=== PATIENT | male | born 1970 | race Caucasian/White ===

== ENCOUNTER 2017-04-22 20:36 | Inpatient (IN) | payer OTHER ==
[~2017-04-22] VITALS: Ht 177.8 cm; Wt 101.4 kg
[2017-04-22 22:04] LABS: BASOPHILS 0.2 % (0-2); EOSINOPHILS 0.2 % (0-7); HEMATOCRIT 47.8 % (42.0-54.0); HEMOGLOBIN 16.8 g/dL (13.5-17.5); IMMATURE GRANULOCYTES 0.3 % (0-5); LYMPHOCYTES 10.9 % (15-50); MCH 31.6 pg (26.0-34.0); MCHC 35.1 g/dL (31.0-37.0); MCV 89.8 fL (80.0-100.0); MEAN PLATELET VOLUME 10.5 fL (7.4-10.4); MONOCYTES 10.9 % (2-11); NEUTROPHILS 77.5 % (40-80); PLATELET COUNT 205 10x3/uL (130-400); RBC 5.32 10x6/uL (4.20-6.10); RDW 11.6 % (11.5-14.5); WBC 6.4 10x3/uL (4.8-10.8)
[2017-04-22 22:27] LABS: CKMB 0.1 U/L (0.0-3.6); CREATINE KINASE 84 UL (21-232); TROPONIN-I < 0.017 ng/mL (0.000-0.060)
[2017-04-22 22:30] VITALS: BP 141/81; Ht 177.8 cm; Wt 101.4 kg
[2017-04-22] MEDS ORDERED: LIPITOR10 MG PO (22:39)
[2017-04-22] MEDS ORDERED: PROAIR HFA8.5 GM INH (22:40)
[2017-04-22] MEDS ORDERED: PHENERGAN25 M1 PO (22:41)
[2017-04-22] MEDS ORDERED: AUGMENTIN 875-11 TAB PO (22:41)
[2017-04-22] MEDS ORDERED: IOPHEN-C NR LI473 ML PO (22:42)
[2017-04-23] VITALS: BP 127/73
[2017-04-23 04:00] VITALS: BP 133/81
[2017-04-23 07:54] VITALS: BP 116/72
[2017-04-23 09:50] LABS: BASOPHILS 0.4 % (0-2); EOSINOPHILS 0.6 % (0-7); HEMATOCRIT 44.6 % (42.0-54.0); HEMOGLOBIN 15.6 g/dL (13.5-17.5); IMMATURE GRANULOCYTES 0.2 % (0-5); LYMPHOCYTES 24.4 % (15-50); MCH 31.5 pg (26.0-34.0); MCV 90.1 fL (80.0-100.0); MEAN PLATELET VOLUME 10.1 fL (7.4-10.4); MONOCYTES 10.7 % (2-11); NEUTROPHILS 63.7 % (40-80); PLATELET COUNT 189 10x3/uL (130-400); RBC 4.95 10x6/uL (4.20-6.10); RDW 11.6 % (11.5-14.5)
[2017-04-23 10:08] LABS: ALBUMIN 2.9 g/dL (3.4-5.0); ANION GAP 10.7 mmol/L (8-16); BILIRUBIN - TOTAL 0.85 mg/dL (0.2-1.3); CALCIUM 8.4 mg/dL (8.5-10.1); CARBON DIOXIDE 29.2 mmol/L (21.0-32.0); CREATININE - SERUM 1.2 mg/dL (0.6-1.3); POTASSIUM - SERUM 3.9 mmol/L (3.5-5.1); PROTEIN - SERUM 6.7 g/dL (6.4-8.2)
[2017-04-23 10:09] LABS: WBC 4.7 10x3/uL (4.8-10.8)
[2017-04-23 11:22] LABS: AMYLASE - SERUM 75 U/L (25-115); LIPASE 366 U/L (73-393)
[2017-04-23 12:19] VITALS: BP 124/71
[2017-04-23 14:56] LABS: APPEARANCE CLEAR (CLEAR); BILIRUBIN NEGATIVE (NEGATIVE); COLOR YELLOW (YELLOW); GLUCOSE NEGATIVE (NEGATIVE); KETONE NEGATIVE (NEGATIVE); LEUKOCYTE ESTERASE NEGATIVE (NEGATIVE); NITRITE NEGATIVE (NEGATIVE); PROTEIN NEGATIVE (NEGATIVE); SPECIFIC GRAVITY 1.015 (1.005-1.020); UROBILINOGEN NORMAL (NORMAL)
[2017-04-23 15:37] VITALS: BP 123/70
[2017-04-23 20:00] VITALS: BP 127/76
[2017-04-24 00:05] VITALS: BP 131/73
[2017-04-24 04:00] VITALS: BP 117/75
[2017-04-24 06:47] LABS: BASOPHILS 0.3 % (0-2); EOSINOPHILS 0.9 % (0-7); HEMATOCRIT 43.8 % (42.0-54.0); HEMOGLOBIN 15.1 g/dL (13.5-17.5); IMMATURE GRANULOCYTES 0.3 % (0-5); LYMPHOCYTES 29.2 % (15-50); MCH 30.9 pg (26.0-34.0); MCHC 34.5 g/dL (31.0-37.0); MCV 89.6 fL (80.0-100.0); MEAN PLATELET VOLUME 10.2 fL (7.4-10.4); MONOCYTES 16.8 % (2-11); NEUTROPHILS 52.5 % (40-80); PLATELET COUNT 201 10x3/uL (130-400); RBC 4.89 10x6/uL (4.20-6.10); RDW 11.6 % (11.5-14.5); WBC 3.5 10x3/uL (4.8-10.8)
[2017-04-24 06:55] LABS: ALBUMIN 2.8 g/dL (3.4-5.0); ALKALINE PHOSPHATASE 62 U/L (46-116); ALT (SGPT) 31 U/L (10-68); BILIRUBIN - TOTAL 0.32 mg/dL (0.2-1.3); CALC OSMOLALITY 280 mosm/kg (275-300); CALCIUM 8.5 mg/dL (8.5-10.1); CARBON DIOXIDE 27.8 mmol/L (21.0-32.0); CHLORIDE - SERUM 107 mmol/L (98-107); GLUCOSE 109 mg/dL (74-106); POTASSIUM - SERUM 3.8 mmol/L (3.5-5.1); PROTEIN - SERUM 6.6 g/dL (6.4-8.2); SODIUM 141 mmol/L (136-145); UREA NITROGEN 9 mg/dL (7-18); eGFR NON AFRICAN AMERICAN 86 mL/min (90-120)
[2017-04-24 08:11] VITALS: BP 131/79
[2017-04-24 12:27] VITALS: BP 151/87
[2017-04-24 15:57] VITALS: BP 132/84
[2017-04-24 20:00] VITALS: BP 132/85
[2017-04-25] VITALS: BP 140/77
[2017-04-25 04:00] VITALS: BP 119/76
[2017-04-25 06:06] LABS: BASOPHILS 0.5 % (0-2); EOSINOPHILS 2.2 % (0-7); HEMATOCRIT 40.6 % (42.0-54.0); HEMOGLOBIN 14.2 g/dL (13.5-17.5); IMMATURE GRANULOCYTES 0.5 % (0-5); LYMPHOCYTES 29.9 % (15-50); MCH 31.3 pg (26.0-34.0); MCV 89.4 fL (80.0-100.0); MEAN PLATELET VOLUME 10.2 fL (7.4-10.4); MONOCYTES 12.5 % (2-11); NEUTROPHILS 54.4 % (40-80); PLATELET COUNT 209 10x3/uL (130-400); RBC 4.54 10x6/uL (4.20-6.10); RDW 11.7 % (11.5-14.5); WBC 4.1 10x3/uL (4.8-10.8)
[2017-04-25 06:21] LABS: ALBUMIN 2.6 g/dL (3.4-5.0); ALKALINE PHOSPHATASE 56 U/L (46-116); ALT (SGPT) 36 U/L (10-68); CALC OSMOLALITY 284 mosm/kg (275-300); CALCIUM 8.4 mg/dL (8.5-10.1); CARBON DIOXIDE 24.4 mmol/L (21.0-32.0); CHLORIDE - SERUM 109 mmol/L (98-107); GLUCOSE 108 mg/dL (74-106); POTASSIUM - SERUM 4.1 mmol/L (3.5-5.1); SODIUM 143 mmol/L (136-145); UREA NITROGEN 10 mg/dL (7-18); eGFR NON AFRICAN AMERICAN 86 mL/min (90-120)
[2017-04-25 08:49] VITALS: BP 121/69
[2017-04-25 12:19] VITALS: BP 142/89
[2017-04-25] MEDS ORDERED: VIBRAMYCIN 100100 MG PO (15:25)
[2017-04-25] MEDS ORDERED: FLORAJEN3 CAPS460 MG PO (15:26)
[2017-04-25] MEDS ORDERED: ZITHROMAX250 MG PO (15:26)
[2017-04-25 16:37] VITALS: BP 146/85
[2017-04-28 18:08] LABS: EHRLICHIA CHAFF IGG Negative (Neg:<1:64); EHRLICHIA CHAFF IGM Negative (Neg:<1:20); HGE IGG TITER Negative (Neg:<1:64); HGE IGM TITER Negative (Neg:<1:20)
[2017-04-28 21:07] LABS: RMSF IGM 0.61 index (0.00-0.89)
== END 2017-04-25 18:10 | disposition home or self-care (01) | DRG 865 ==
LOC: D.MS 20:36
PROVIDERS: Family Medicine; Internal Medicine; Student in an Organized Health Care Education/Training Program; ADMIT Family Medicine
DX: A93.8 Other specified arthropod-borne viral fevers (principal); J18.9 Pneumonia, unspecified organism; E86.0 Dehydration; T63.481A Toxic effect of venom of other arthropod, accidental (unintentional), initial encounter